=== PATIENT | female | born 1970 | race Caucasian/White ===

== ENCOUNTER 2025-02-03 11:16 | Emergency (ER) | payer OTHER, SELFPAY ==
[2025-02-03] VITALS (7 sets, daily range): BP systolic 124–141; BP diastolic 73–90; PULSE 50–81; RESP 14–23; TEMP 36.4–36.6; O2SAT 99–100
--- NOTE | ~2025-02-03 | CT_ITS ---
EXAMINATION: CTA BRAIN/CAROTID DATE: 02/03/2025 13:48 INDICATION: Headache, dizziness and arm numbness TECHNIQUE: Computed tomographic angiography (CTA) of the head and neck was performed with 100 mL Omni paque-350 intravenous contrast. Multiplanar reconstructions and maximum intensity projection 3D-recon structions of the carotid arteries and of the intracranial arteries were created by the technologist on a separate workstation. Precontrast CT of the head was also obtained. Automated exposure control and iterative reconstruction technique were employed.The dose-length product was 1581.96 mGy-cm. COMPARISON: None. FINDINGS: Carotid arteries: Visualized aortic arch and great vessels arising from the arch are normal in caliber with no dissecti on negligible amount of nonhemodynamically subsequent plaque at the aortic arch. Left vertebral arter y is mildly dominant with no evident plaque along the bilateral extrarenal vertebral arteries. There is no evident atherosclerotic plaque with 0% stenosis of the right and left carotid bulbs relative to normal distal artery lumen diameter (NASCET criteria). Mild cervical spondylosis. Visualized upper l ungs are clear. Cervical soft tissues are unremarkable. Head: No acute intracranial hemorrhage, acute infarction or abnormal extra axial fluid collection. Ventricl es are normal and symmetric. No mass/mass effect. No abnormally enhancing brain lesions on the postco ntrast imaging. Mild mucosal thickening in the left maxillary sinus. The orbits and mastoid air cells are normal. Intracranial arteries Left vertebral artery is dominant. There is no hemodynamically significant stenosis in the vertebral, basilar and internal carotid arteries. Both A1 and P1 segments are patent. There are tiny anterior c ommunicating and bilateral posterior communicating arteries. There are no aneurysms identified. Cere bral arterial arborization appears symmetric. IMPRESSION: 1. 0% stenosis of the right and left carotid bulbs relative to normal distal artery lumen diameter (N ASCET criteria). 2. Normal brain with no acute intracranial process or abnormally enhancing brain lesions. 3. Normal cerebral CT angiogram with no hematoma significant stenosis, thrombosis or aneurysm. Reviewed, dictated and finalized at location A. IMPRESSION: 1. 0% stenosis of the right and left carotid bulbs relative to normal distal ar [place] lumen diameter (NASCET criteria). 2. Normal brain with no acute intracranial process or abnormally enhancing brai n lesions. 3. Normal cerebral CT angiogram with no hematoma significant stenosis, thrombos is or aneurysm.
--- NOTE | 2025-02-03 11:47 | ECG_ITS ---
Test Date: 2025-02-03 11:55:39 Measurements Intervals [place] Rate: 53 P: 37 NC: 151 QRS: -11 QRSD: 102 T: 7 QT: 412 QTc: 389 Interpretive Statements SINUS BRADYCARDIA LOW QRS VOLTAGE IN PRECORDIAL LEADS [QRS DEFLECTION < 1.0 mV IN CHEST LEADS] No previous ECG available for comparison Electronically Signed On 02-03-2025 14:12:34 CDT by Filippo Rollins M.D.
[2025-02-03 12:02] LABS: Basophils Percent Auto 0.9 % (0.2-1.2); Eosinophils Absolute Auto 0.1 K/mm3 (0-0.3); Eosinophils Percent Auto 1.4 % (0-4.4); Hematocrit 39.6 % (37.0-47.0); Hemoglobin 12.9 g/dL (12.0-15.0); Immature Granulocyte Absolute 0.01 K/mm3 (0.00-0.031); Immature Granulocyte Percent A 0.2 % (0-0.5); Lymphocytes Absolute Auto 1.53 K/mm3 (0.9-3.2); Mean Corpuscular HGB Conc 32.6 g/dl (32-36); Mean Corpuscular Hemoglobin 31.2 pg (26-34); Mean Corpuscular Volume 95.7 fl (80-100); Mean Platelet Volume 10.9 fl (7.4-10.4); Monocytes Absolute Auto 0.4 K/mm3 (0.1-0.6); Monocytes Percent Auto 10.4 % (2.6-8.5); Neutrophils Absolute Auto 2.2 K/mm3 (1.3-6.7); Neutrophils Percent Auto 51.1 % (45.5-73.1); Platelet Count Result 178 k/mm3 (150-375); Red Blood Count 4.14 M/mm3 (4.2-5.4); Red Cell Distribution Width 13.2 % (11.5-14.5); White Blood Count 4.3 K/mm3 (4.5-10.0)
[2025-02-03 12:12] LABS: Alanine Aminotransferase 22 U/L (6-35); Albumin Level 4.3 g/dL (3.5-5.1); Alkaline Phosphatase 56 U/L (38-126); Anion Gap 7 mmol/L (4-12); Aspartate Amino Transferase 29 U/L (14-36); Bilirubin,Total 0.7 mg/dL (0.2-1.3); Blood Urea Nitrogen 16 mg/dL (7-17); Carbon Dioxide 25 mmol/L (22-30); Chloride 106 mmol/L (98-107); Estimated CRCL calculation 94 ml/min; Estimated Glomerular Filt Rate > 60; Glucose 95 mg/dL (65-110); Potassium 4.2 mmol/L (3.4-5.0); Sodium 138 mmol/L (137-145)
[2025-02-03] MEDS: MECLIZINE HCL 25 MG TABLET PO (13:00)
[2025-02-03] MEDS: KETOROLAC 30 MG/ML VIAL (*BKC) IV PUSH (13:00)
[2025-02-03] MEDS: SODIUM CHLORIDE 0.9% IV 1,000 ML 999 ML IV CONT (13:01)
[2025-02-03 13:33] LABS: Add Urine Microscopic? YES; Appearance Urine Clear (Clear); Bacteria Urine Rare /hpf; Bilirubin Urine Negative (Negative); Blood Urine Negative (Negative); Color Urine Yellow (Yellow); Glucose Urine UA Negative (Negative); Ketones Urine Negative (Negative); Leukocyte Esterase Ur Trace LEU/UL (Negative); Nitrate Urine Negative (Negative); Non Pathogenic Casts 0-2; Protein Urine Negative (Negative); RBC Urine 0-2 /hpf (0-2); Specific Grav Ur 1.011 (1.001-1.035); Squamous Epithelial Cell Urine None Seen /hpf (Few); WBC Urine 0-5 /hpf (0-3)
--- OUTSIDE RECORDS SUMMARY | 2025-02-03 14:18 | XMS_ITS | CONTINUITY OF CARE DOCUMENT ---
Author Name karen jones Address Unknown Organization [facility] Office Address [address] [place] [address] Phone [phone] Care Team Providers Care Door Machine Operator Name Role Phone Eben Devine MD Unavailable [phone] Eben Devine MD Unavailable [phone] INSURANCE PROVIDERS Payer name Policy type / Coverage type [place] red democrat ID [facility] [employer] [facility] [id number]
--- OUTSIDE RECORDS SUMMARY | 2025-02-03 14:18 | XMS_ITS | Clinical Summary ---
Author Organization [facility] Address [address] [place] [address] Care Team Providers Care Tire Builder Operator Name Role Phone Tom Pritchard MD Primary Care Provider [phone] Allergies Active Allergy Reactions Criticality Noted Date Comments Meperidine Headache,Other (See comments) High 2022 Hypertension Preservative Flatulence Low 07/15/2022 GI problems. Tramadol Anaphylaxis High 05/20/2020 Medications ALPRAZolam (XANAX) 0.5 mg tabletIndicatio ns:anxiety Take 1 tablet (0.5 mg total) by mouth 3 (three) times a day as needed for anxiety 05/23/2022 Active amLODIPine (NORVASC) 5 mg tabletIndicatio ns:hypertension Take 1 tablet (5 mg total) by mouth every morning 06/19/2022 Active atorvastatin (LIPITOR) 20 mg tabletIndicatio ns:hyperlipidem ia Take 1 tablet (20 mg total) by mouth every morning 05/23/2022 Active rizatriptan (MAXALT) 10 mg tabletIndicatio ns:Migraine Take 1 tablet (10 mg total) by mouth as needed for migraine 03/14/2013 Active calcium citrate-vitamin D3 200 mg-6.25 mcg (250 unit) tabletIndicatio ns:Hypocalcemia Prevention Take 2 tablets by mouth 3 (three) times a day Start post-surgery 180 tablet 11 03/12/2023 Active polyethylene glycol (MIRALAX) 17 gram/dose powderIndicatio ns:constipation Take 17 g by mouth 2 (two) times a day Start post-surgery 1020 g 1 03/12/2023 Active cyanocobalamin (Vitamin B-12) 500 mcg tabletIndicatio ns:Prevention of Vitamin B12 Deficiency Take 1 tablet (500 mcg total) by mouth daily Start post Surgery 30 tablet 11 05/07/2023 Active buPROPion XL (WELLBUTRIN XL) 150 mg 24 hr tablet Take 1 tablet every day by oral route in the morning for 30 days. 10/05/2024 Active busPIRone (BUSPAR) 5 mg tablet Take 1 tablet twice a day by oral route after meal(s) for 30 days. 10/05/2024 Active Active Problems Problem Noted Date Diagnosed Date Status post bariatric surgery 10/27/2024 Primary hypertension 08/23/2022 Hyperlipidemia 08/23/2022 Low back pain 08/23/2022 Resolved Problems Problem Noted Date Diagnosed Date Resolved Date Morbid (severe) obesity due to excess calories 03/27/2023 06/24/2023 Morbid obesity due to excess calories 12/09/2022 06/24/2023 Overview (12/09/2022): Added automatically from request for surgery [id number] BMI 45.0-49.9, adult 07/15/2022 023 Surgical History Surgery Date Site/Laterality Comments SECTION 08/14/1991 HYSTERECTOMY 2019 TUBAL LIGATION OTHER SURGICAL HISTORY Norplant OTHER SURGICAL HISTORY Surgery for Plantar Fasciitis Medical History Medical History Date Comments Anxiety 3yrs GERD (gastroesophageal reflux disease) 2020 Hypertension 3yrs Liver disease 2021 Low back pain 8 years Morbid obesity (HCC) 10 years Obesity 30 years Hyperlipidemia Family History Medical History Relation Name Comments Hypertension Brother Klaus Heart attack Father Rafy Hypertension Father Rafy Stroke Father Rafy Hypertension Maternal Grandfather Rafy Cancer Mother Renetta Kidney disease Mother Renetta Obesity Mother Renetta Heart attack Paternal Grandmother Rafy Sleep apnea Son Jefferson Relation Name Status Comments Brother Klaus Father Rafy Maternal Grandfather Rafy Mother Renetta Paternal Grandmother Rafy Son Jefferson Social History Tobacco Use Types Packs/Day Years Used Date Smoking Tobacco: Never Passive Smoke Exposure: Past Smokeless Tobacco: Never Tobacco Cessation:Counseling Given: Not Answered AUDIT-C Answer Date Recorded Q1: How often do you have a drink containing alc ohol? Monthly or less 10/27/2024 Q2: How many drinks containi ng alcohol do you have on a typical day when you are drinking? 1 or 2 10/27/2024 Q3: How often do you have si x or more drinks on one occasion? Never 10/27/2024 Personal Safety Answer Date Recorded Have you ever been in or are you currently in a harmful physical or emotional relationship or is someone making you feel afraid or unsafe? Denies 03/27/2023 Comments No Sex and Gender Information Value Date Recorded Sex Assigned at Not on file Legal Sex Female 9:26 AM IC [employer] Gender Identity Female 06/03/2022 9:00 AM CDT Sexual Orientation Not on file Obstetrics History Comments S/p Hysterectomy Last Filed Vital Signs Vital Sign Reading Time Taken Comments Blood Pressure 115/79 10/27/2024 9:51 AM [employer] Pulse 55 10/27/2024 9:51 AM [employer] Temperature 36.9 C (98.4 F) 03/29/2023 8:15 AM CDT Respiratory Rate 20 03/29/2023 8:15 AM CDT Oxygen Saturation 99% 10/27/2024 9:51 AM IC [employer] Inhaled Oxygen Concentration - - Weight 94.1 kg (207 lb 6.4 oz) 10/27/2024 9:51 A M [employer] Height 170.2 cm (5' 7 ) 10/27/2024 9:51 AM IC [employer] Body Mass Index 32.48 10/27/2024 9:51 AM IC [employer] Plan of Treatment Health Maintenance Due Date Last Done Comments Breast Cancer Screening-Mammogram 1972 Colon Cancer Screening-Colonoscopy 1972 Depression Screening 1972 Hepatitis C Screening 1972 DTaP/Tdap/Td Vaccine (1 - Tdap) 02/11/1983 Hepatitis B Screening 02/11/1990 Regular Well Visit/Exam 18-64 02/11/1990 Zoster Vaccine (1 of 2) 02/11/2022 Covid-19 Vaccine ( - 2023-2 5 season) 2024 12/29/2020, 12/01/2020 Influenza Vaccine (Season Ended) 2025 Pneumococcal vaccine <65 Aged Out No longer eligible based on patient's age to complete this topic Medical Devices Implanted Type Area Insole Reinforcer Device Identifier Shelf Expiration Date Model / Serial / Lot [employer] Biological Bariatric Peristrip Non Crosslinked Bovine Pericardium For Endo Triny Thin [id number] - Sn/A - [id number] Implanted:Qty: 4 on 03/27/2023 by Navin Storm MD at [facility] Other - see comments N/A: Abdomen [employer] 09/17/2023 [id number] ATHN / N/A / [id number] Description:Antonina-Strips Dry Staple Line Reinforcement [employer] Biological Bariatric Peristrip Non Crosslinked Bovine Pericardium For Endo Triny Thin [id number] - Sn/A - [id number] Implanted:Qty: 2 on 03/27/2023 by Navin Storm MD at [facility] Other - see comments N/A: Abdomen [employer] 09/17/2023 [id number] ATHN / N/A / [id number] Insurance [facility] Advance Directives For more information, please contact: [phone] * Full Code (Latest Code Status on File) Date Activated Date Inactivated Comments 03/27/2023 5:21 PM 03/29/2023 5:10 PM Care Teams Tire Builder Operator Relationship Specialty Start Date End Date Tom Pritchard MD [facility] [place] [address] PCP - General Family Medicine 07/23/22
--- OUTSIDE RECORDS SUMMARY | 2025-02-03 14:18 | XMS_ITS | Referral Summary ---
Author Organization [facility] Address [address] [place] [address] Care Team Providers Care Dba Manager Name Role Phone Tom Pritchard MD Primary Care Provider [phone] Allergies Active Allergy Reactions Criticality Noted Date [...] (12/09/2022): Added automatically from request for surgery [id number] BMI 45.0-49.9, adult 07/15/2022 023 Social History Tobacco Use Types Packs/Day Years [...] on file Legal Sex Female 9:26 AM [employer] Gender Identity Female 06/03/2022 9:00 AM CDT Sexual Orientation Not on file Last Filed Vital Signs Vital Sign Reading Time Taken Comments Blood Pressure 115/79 10/27/2024 9:51 AM [employer] Pulse 55 10/27/2024 9:51 AM [employer] Temperature 36.9 C (98.4 F) 03/29/2023 8:15 AM CDT Respiratory Rate 20 03/29/2023 8:15 AM CDT Oxygen Saturation 99% 10/27/2024 9:51 AM [employer] Inhaled Oxygen Concentration - - Weight 94.1 kg (207 lb 6.4 oz) 10/27/2024 9:51 A M [employer] Height 170.2 cm (5' 7 ) 10/27/2024 9:51 AM [employer] Body Mass Index 32.48 10/27/2024 9:51 AM [employer] Plan of Treatment Not on file Medical Devices Implanted Type Area Flexographic Press Plate Setter Device Identifier Shelf Expiration Date Model / Serial / Lot [employer] Biological Bariatric Peristrip Non Crosslinked Bovine Pericardium For Endo Triny Thin [id number] - Sn/A - [id number] Implanted:Qty: 4 on 03/27/2023 by Navin Storm MD at [facility] Other - see comments N/A: Abdomen [employer] 09/17/2023 [id number] ATHN / N/A / [id number] Description:Antonina-Strips Dry Staple Line Reinforcement [employer] Biological Bariatric Peristrip Non Crosslinked Bovine Pericardium For Endo Triny Thin [id number] - Sn/A - [id number] Implanted:Qty: 2 on 03/27/2023 by Navin Storm MD at [facility] Other - see comments N/A: Abdomen [employer] 09/17/2023 [id number] ATHN / N/A / [id number] Insurance [facility] Advance Directives For more information, please contact: [phone] * Full Code (Latest Code Status on File) Date Activated Date Inactivated Comments 03/27/2023 5:21 PM 03/29/2023 5:10 PM Care Teams Dba Manager Relationship Specialty Start Date End Date Tom Pritchard MD [address] [place] [address] [place] [address] PCP - General Family Medicine 07/23/22
--- OUTSIDE RECORDS SUMMARY | 2025-02-03 14:19 | XMS_ITS | Data Portability ---
Author Organization [facility] [employer], Main Office Address [address] [place] [address] Assessment No assessment recorded. Plan of Treatment Reminders Order Date Submit Date Provider Last Modified By Organization Details Last Modified Time Details Appointments Sick/Acut e 2024 11:00A ALEKSANDR Wilson Not available Not available Not available Follow Up 15 2024 09:00A M ALEKSANDR Cordoba Not available Not available Not available Lab drug screen, urine [email or web address] [place] [address] (Lab), [address] [place], [address], 12/31/2024 11:06:59 CBC w/ auto diff 2022 023 [facility] (Lab), [address] [place], [address], 09/04/2023 15:03:18 lipid panel, serum 2022 023 [facility] (Lab), [address] [place], [address], 09/04/2023 15:03:19 CMP, serum or plasma 2022 023 [facility] (Lab), [address] [place], [address], 09/04/2023 15:03:19 CK (creatine kinase), total, serum [email or web address] (Lab), [address] [place], [address], 09/24/2023 12:29:24 TSH, serum or plasma 2022 023 [email or web address] [facility] (Lab), [address] [place], [address], 09/24/2023 12:29:24 Referral psychiatr ist referral - Please eval and treat . Unable to tolerate venlafexa ine nor escitalop jamel. Thank you . numerous family stresses . lost her dad last year. 2024 025 [email or web address] Saumya Real [employer], [address], [address], 11/08/2024 09:10:38 Procedures None recorded. Surgeries None recorded. Imaging MAMMO, screening , digital, bilateral - *Please call pt to schedule* [address]23 [email or web address] [place] [address] ([facility]), [address] [place], [address], 08/18/2024 09:41:41 Medication Orders trazodone 50 mg tablet 2024 025 [facility] #80452, [address], [place], [id number], 12/24/2024 09:45:51 alprazola m 0.5 mg tablet 2024 025 [facility] #50926, [address], [place], [id number], 12/24/2024 09:44:18 buspirone 10 mg tablet 2024 025 [facility] #00940, [address], [place], [id number], 12/24/2024 09:44:14 bupropion HCl XL 150 mg 24 hr tablet, extended release 2024 025 [email or web address] [facility] #93169, [address], [place], [id number], 12/24/2024 09:22:01 alprazola m 0.5 mg tablet 2024 025 [email or web address] [facility] #36642, [address], [place], [id number], 10/05/2024 10:26:12 buspirone 5 mg tablet [address] [facility] #30193, [address], [place], [id number], 01/05/2025 14:57:29 escitalop jamel 10 mg tablet 2023 024 [email or web address] [facility] #45384, [address], [place], [id number], 10/05/2024 10:06:45 escitalop jamel 20 mg tablet 2023 024 [email or web address] [facility] #54140, [address], [place], [id number], 10/05/2024 10:06:54 alprazola m 0.5 mg tablet [address] [facility]11622, [address], [place], [id number], 08/04/2024 10:27:40 Patient TargetsNo targets recorded. Patient Instructions Encounter Date Encounter Id Patient Instructions Last Modified By Organization Details Last Modified Time 08/04/2024 [id number] counseled , good insight , no si/hi . wrote down book [employer] ..... get [employer] , write out thoughts , talk to someone , work through the grieving process [email or web address] Not available 08/22/2024 09:12:21 10/05/2024 [id number] no si/hi ; good insight; counseled why it is a good idea to get off alprazolam . she will checkout clonazepam and think about it [email or web address] Not available 10/08/2024 17:21:49 12/24/2024 [id number] counseled , good insight , no si/hi [email or web address] Not available 01/05/2025 14:57:48 Reason for Referral Psychiatrist Referral for An xiety Please eval and treat . Unable to tolerate venlafexaine nor escitalopram. Thank you . numerous family stresses . lost her dad last year. Referring Physician: Patrick Putnam, Family Medicine, Encounter Date: 10/05/2024 Results Created Date Observation Date Name Description Value Unit Range Abnormal Flag Note LastModifiedBy Organization Detail LastModifiedTime Result Notes None recorded. Problems Name Problem SNOMED Code Status Onset Date Resolution Date Notes Provider Name and Address Organization Details Recorded Time Cough with fever 202363242 Active Not Available [facility] 3 16:28:29 Lumbar disc prolapse with radiculopathy 663083017 Active Not Available [facility] 3 16:28:29 Low back pain 536421068 Active Not Available [facility] 3 16:28:29 Pain in pelvis 18099583 Active Not Available [facility] 3 16:28:29 Hypertensive disorder 98741898 Active Not Available [facility] 3 16:28:29 Streptococcal sore throat 43040015 Active Not Available [facility] 3 16:28:29 Pain of shoulder region 78630486 Active Not Available [facility] 3 16:28:29 Upper respiratory infection 52458390 Active Not Available [facility] 3 16:28:29 Disorder of bursa of shoulder region 46483879 Active Not Available [facility] 3 16:28:29 Strain of thoracic region 38250219 Active Not Available [facility] 3 16:28:29 Anxiety 61530600 Active 2022 Tom Pritchard MD [address], [place], [address] , [place] [facility] 3 11:49:45 Laparoscopic sleeve gastrectomy Active 2022 ALEKSANDR Cordoba [address], [address], [place], [address] , [place] [facility] 3 10:59:27 Hyperlipidemi a 42902836 Active 2022 ALEKSANDR Cordoba [address], [address], [place], [address] , [place] [facility] 3 11:00:06 Family horacio 584755135 Active 2023 ALEKSANDR Cordoba [address], [address], [place], [address] , [place] [facility] 4 10:14:10 Screening mammography Active 2023 ALEKSANDR Cordoba [address], [place], [address] , [place] [facility] 4 10:20:17 Adult health examination Active 2023 ALEKSANDR Cordoba [address], [address], [place], [address] , [place] [facility] 4 10:27:30 Insomnia 721861507 Active 2024 ALEKSANDR Cordoba [address], [place], [address] , [employer] [facility] 5 09:44:57 Problem Notes None recorded. Medical Equipment None Reported. Allergies Allergen ID Allergen Name Allergen Category Reaction Reaction Severity Criticality Documentation Date Start Date Code Code System Note Provider Name and Address Organization Details Recorded Time 56993 tramadol medicatio n Not available Not available Not available 11/13/2022 35053 RxNorm Not Available [facility] 3 16:29:28 71097 Demerol medicatio n Not available Not available Not available 11/13/2022 97193 1 RxNorm Not Available [facility] 3 16:29:28 Medications Name Sig Start Date Stop Date Status Note LastModified by Organization Details LastModified Time carisopro dol 350 mg tablet Take 1 tablet 3 times a day by oral route for 30 days. 06/30 completed Not Available Not Available Not Available cyclobenz aprine 10 mg tablet TAKE 1 TABLET BY MOUTH THREE TIMES DAILY NEEDED 08/04 completed Not Available Not Available Not Available amoxicill in 500 mg capsule TAKE 1 CAPSULE THREE TIMES DAILY UNTIL GONE 08/04 completed Not Available Not Available Not Available buspirone 5 mg tablet TAKE 1 TABLET BY MOUTH TWICE DAILY AFTER A MEAL 01/05 completed increase d to 10 mg Not Available Not Available Not Available venlafaxi ne ER 37.5 mg capsule,e xtended release 24 hr Take 1 capsule every day by oral route in the evening for 7 days. 10/05 completed Not Available Not Available Not Available venlafaxi ne ER 75 mg capsule,e xtended release 24 hr Take 1 capsule every day by oral route in the evening for 7 days. 10/05 completed Not Available Not Available Not Available atorvasta tin 20 mg tablet TAKE 1 TABLET BY MOUTH EVERY DAY active Not Available Not Available No t Available trazodone 50 mg tablet TAKE 1 TABLET BY MOUTH EVERY DAY AT BEDTIME active Not Available Not Available No t Available azithromy connie 250 mg tablet Take 2 TABLET EVERY DAY by oral route for 1 day. Than 1 tablet for 4 days active Not Available Not Available No t Available ibuprofen 800 mg tablet Take 1 tablet 3 times a day by oral route for 30 days. active Not Available Not Available No t Available alprazola m 1 mg tablet TAKE 1 TABLET BY MOUTH EVERY DAY active Not Available Not Available No t Available benzonata te 200 mg capsule Take 1 capsule 3 times a day by oral route as needed. 05/23 completed Not Available Not Available Not Available hydrocodo ne 5 mg-acetam inophen 325 mg tablet Take 1-2 TABLET EVERY4- 6 HOURS by oral route. active Not Available Not Available No t Available lisinopri l 20 mg tablet Take 1 tablet every day by oral route. 08/02 completed Not Available Not Available Not Available ondansetr on HCl 4 mg tablet 09/04 completed Not Available Not Available Not Available rizatript an 10 mg tablet Take by oral route. active Not Available Not Available No t Available venlafaxi ne ER 150 mg capsule,e xtended release 24 hr Take 1 capsule every day by oral route in the evening for 30 days. 10/05 completed Not Available Not Available Not Available phentermi ne 37.5 mg tablet TAKE ONE TABLET BY MOUTH DAILY 03/03 completed Not Available Not Available Not Available amlodipin e 5 mg tablet TAKE 1 TABLET BY MOUTH EVERY DAY IN THE MORNING active Not Available Not Available No t Available tramadol 50 mg tablet TAKE ONE TABLET BY MOUTH EVERY 6 HOURS active Not Available Not Available No t Available amoxicill in 500 mg tablet TAKE 1 TABLET BY MOUTH THREE TIMES DAILY TILL GONE 05/10 completed Not Available Not Available Not Available alprazola m 0.5 mg tablet TAKE 1 TABLET BY MOUTH TWICE DAILY NEEDED active Not Available Not Available No t Available amoxicill in 875 mg tablet Take 1 tablet every 12 hours by oral route. active Not Available Not Available No t Available meclizine 25 mg tablet Take 1 tablet 3 times a day by oral route as needed. 01/20 completed Not Available Not Available Not Available benzonata te 100 mg capsule TAKE 1 CAPSULE BY MOUTH 3 TIMES A DAY ASNEEDED 05/10 completed Not Available Not Available Not Available rizatript an 10 mg disintegr ating tablet Take by oral route. 08/04 completed Not Available Not Available Not Available dexametha sone 2 mg tablet TAKE 3 TABLETS BY MOUTH DAILY 05/10 completed Not Available Not Available Not Available pantopraz ole 40 mg tablet,de layed release Take 1 tablet every day by oral route. 09/04 completed Not Available Not Available Not Available oseltamiv ir 75 mg capsule 05/10 completed Not Available Not Available Not Available buspirone 10 mg tablet TAKE 1 TABLET TWICE A DAY BY MOUTH AFTER MEALS FOR 30 DAYS active Not Available Not Available No t Available lisinopri l 10 mg tablet Take 1 tablet every day by oral route. active Not Available Not Available No t Available hyoscyami ne 0.125 mg sublingua l tablet 08/04 completed Not Available Not Available Not Available ursodiol 300 mg capsule 09/04 completed Not Available Not Available Not Available docusate sodium 100 mg capsule TAKE 1 CAPSULE BY MOUTH TWICE DAILY active Not Available Not Available No t Available omeprazol e 20 mg capsule,d elayed release TAKE 1 CAPSULE BY MOUTH DAILY active Not Available Not Available No t Available diclofena c sodium 75 mg tablet,de layed release Take 1 tablet twice a day by oral route. active Not Available Not Available No t Available hydrochlo rothiazid e 25 mg tablet Take 1 tablet every day by oral route. 05/10 completed Not Available Not Available Not Available Cheratuss in AC 10 mg-100 mg/5 mL oral liquid take 1-2 tsp every 4-6hrs prn cough active Not Available Not Available No t Available polyethyl ramin glycol 3350 17 gram/dose oral powder TAKE 17G BY MOUTH TWICE DAILY STARTING POST-WILMAR ELIZABETH active Not Available Not Available No t Available scopolami ne 1 mg over 3 days transderm al patch 09/04 completed Not Available Not Available Not Available methylpre dnisolone 4 mg tablets in a dose pack 06/30 completed Not Available Not Available Not Available ondansetr on 4 mg disintegr ating tablet 06/15 completed Not Available Not Available Not Available amoxicill in 875 mg-potass ium clavulana te 125 mg tablet Take 1 tablet every 12 hours by oral route. 10/29 completed Not Available Not Available Not Available oxycodone 5 mg tablet 08/04 completed Not Available Not Available Not Available valsartan 160 mg tablet 11/06 completed Not Available Not Available Not Available Vitamin B12 500 mcg tablet Take by oral route. active Not Available Not Available No t Available olmesarta n 40 mg tablet TAKE ONE TABLET BY MOUTH DAILY 08/02 completed Not Available Not Available Not Available escitalop jamel 10 mg tablet Take 1 tablet every day by oral route in the morning, for 7. 10/05 completed Not Available Not Available Not Available escitalop jamel 20 mg tablet Take 1 tablet every day by oral route in the morning for 30 days. 10/05 completed Not Available Not Available Not Available Therese-BE 0.35 mg tablet Take 1 tablet every day by oral route. 05/10 completed Not Available Not Available Not Available bupropion HCl XL 150 mg 24 hr tablet, extended release TAKE 1 TABLET BY MOUTH EVERY DAY IN THE MORNING active Not Available Not Available No t Available topiramat e 50 mg tablet TAKE 1 TABLET TWICE A DAY active Not Available Not Available No t Available nitrofura ntoin monohydra te/macroc rystals 100 mg capsule TK 1 C PO Q 12 H FOR 7 DAYS 09/19 completed Not Available Not Available Not Available Voltaren 2013 active Not Available Not Available Not Avai lable Colace active Not Available Not Availa ble Not Available calcium citrate 200mg active Not Available Not Available Not Available Vitamin D3 active Not Available Not Available Not Available multivita min active Not Available Not Available Not Available valsartan 320 mg-hydroc hlorothia zide 25 mg tablet TAKE 1 TABLET BY MOUTH EVERY DAY 08/04 completed Not Available Not Available Not Available aprepitan t 40 mg capsule 09/04 completed Not Available Not Available Not Available hydrochlo rothiazid e 12.5 mg tablet Take 1 tablet every day by oral route. 06/01 completed Not Available Not Available Not Available FeroSul 325 mg (65 mg iron) tablet TAKE 1 TABLET BY MOUTH DAILY WITH BREAKFAS T 08/04 completed Not Available Not Available Not Available Nucynta ER 100 mg tablet,ex tended release Take 1 tablet every 12 hours by oral route. 05/10 completed Not Available Not Available Not Available Trintelli x 20 mg tablet Take 1 tablet every day by oral route. 05/10 completed Not Available Not Available Not Available Vitals Date Recorded Body height Body mass index (BMI) Body weight Body temperature Respiratory rate Heart rate Oxygen saturation Oxygen saturation in Arterial blood by Pulse oximetry Systolic blood pressure Diastolic blood pressure Provider Name and Address Organization Details Last Updated DateTime 3 170.18 cm 35.9 kg/m2 023425. 65 g 97.6 [degF] 16 /min 56 /min 98 % 98 % 130 mm[Hg] 86 mm[Hg] Amanda Queen RN [place] [facility] [facility] 3 10:49:27 Date Recorded Body height Body mass index (BMI) Body weight Body temperature Heart rate Oxygen saturation Oxygen saturation in Arterial blood by Pulse oximetry Systolic blood pressure Diastolic blood pressure Provider Name and Address Organization Details Last Updated DateTime 4 170.18 cm 32.1 kg/m2 95805.4 4 g 98 [degF] 73 /min 100 % 100 % 130 mm[Hg] 80 mm[Hg] Dora Balbuena RN [facility] [employer] [facility] 4 09:57:24 Date Recorded Body height Body mass index (BMI) Body weight Body temperature Oxygen saturation Oxygen saturation in Arterial blood by Pulse oximetry Heart rate Systolic blood pressure Diastolic blood pressure Provider Name and Address Organization Details Last Updated DateTime 5 170.18 cm 32.5 kg/m2 09927.7 g 98.1 [degF] 98 % 98 % 59 /min 118 mm[Hg] 78 mm[Hg] Rafiq Melton RN [facility] [employer] [facility] 5 10:09:37 Date Recorded Body height Body mass index (BMI) Body weight Body temperature Heart rate Oxygen saturation Oxygen saturation in Arterial blood by Pulse oximetry Systolic blood pressure Diastolic blood pressure Provider Name and Address Organization Details Last Updated DateTime 5 170.18 cm 32.6 kg/m2 80973.2 1 g 97.3 [degF] 79 /min 99 % 99 % 138 mm[Hg] 86 mm[Hg] Reba Ray Malcolm [facility] [employer] [facility] 5 09:28:14 Date Recorded Body height Body mass index (BMI) Body weight Body temperature Oxygen saturation Oxygen saturation in Arterial blood by Pulse oximetry Heart rate Systolic blood pressure Diastolic blood pressure Provider Name and Address Organization Details Last Updated DateTime 5 170.18 cm 32.6 kg/m2 86307.2 1 g 99.1 [degF] 99 % 99 % 72 /min 160 mm[Hg] 78 mm[Hg] Reba Ray Malcolm [facility] [employer] [facility] 5 12:01:44 Social History None recorded. Functional Status None recorded. Mental Status None recorded. Family History Nothing Reported Notes:grandfather liver canc er Medical History No medical history recorded. Gynecological HistoryNo gynecological history recorded. Obstetrics History GPAL:G 0 P 0 0 0 0 Past Encounters Encounter ID Performer Location Encounter Start Date Encounter Closed Date Diagnosis/Indication Diagnosis SNOMED-CT Code Diagnosis ICD10 Code Diagnosis Note [id number] Tom Pritchard MD [facility] [place] [address] [place] [address] 05/10/2022 00:00:00 05/10/2022 18:54:13 [id number] Tom Pritchard MD [facility] [place] [address] [place] [address] 05/22/2022 00:00:00 05/23/2022 05:54:28 [id number] Tom Pritchard MD [facility] [place] [address] [facility] [place] [address] 06/19/2022 00:00:00 06/19/2022 13:16:21 [id number] Tom Pritchard MD [facility] [place] [address] [facility] [place] [address] 08/21/2022 00:00:00 08/21/2022 10:31:14 [id number] Tom Pritchard MD [facility] [place] [address] [place] [address] 09/19/2022 00:00:00 09/19/2022 11:18:23 [id number] Tom Pritchard MD [facility] [place] [address] [facility] [place] [address] 12/11/2022 09:32:45 12/11/2022 10:42:16 Pre-surgery evaluation 312355640 Z01.818 ECG is normal [id number] Tom Pritchard MD [facility] [place] [address] [facility] [place] [address] 09/04/2023 10:33:01 09/04/2023 11:09:10 Hypertensive disorder 44004566 I10 Hyperlipidemia 95595179 E78.5 [id number] [facility] [address] [place] [address] 08/04/2024 09:41:49 08/04/2024 10:23:40 Family grieving 678226652 Z63.8 Anxiety 02496446 F41.9 Screening mammography 24 303054 Z12.31 Adult heal th examination 402918705 Z00.00 Hyperlipidemia 28075915 E78.5 [id number] Hernan Kumar MD [address] [address] 10/05/2024 09:59:47 10/05/2024 10:38:26 Family grieving 272758659 Z63.8 Anxiety 20453307 F41.9 [id number] Hernan Kumar MD [address] [address] 12/24/2024 09:09:01 12/24/2024 10:35:41 Anxiety 15585186 F41.9 Insomnia 894655336 G47.0 0 Long-term current use of benzodiazepine 5646473272 8834543 Z79.899 Lumbar dis c prolapse with radiculopathy 543011812 M51.16 Health Concerns Section Related Observation LastModified by Organization Detai ls LastModified Time None Recorded Concern Status LastModified by Organization Details LastModified Time None Recorded Advance Directives Directive None Recorded Payers Encounter Date Sequence Insurance Name Policy Number Policy Burrell Covered Member ID Burrell Member ID Guarantor Name 09/04/2023 1 [employer] () Farzaneh Brianna [id number] Farzaneh [place] 08/04/2024 1 [employer] () Farzaneh Brianna [id number] Farzaneh Brianna 10/05/2024 1 [employer] () Farzaneh [place] [id number] Farzaneh [place] 10/05/2024 1 [employer] [place] () Farzaneh Brianna [id number] Farzaneh Brianna 12/24/2024 1 [facility] [place] Farzaneh [place] [id number] Farzaneh [employer] Notes Date Note Type Note Provider Name and Address Organization Details Recorded Time 09/04/2023 text/html 130/73 at home. has lost 107 pounds .. no valsartan for awhile , just amlodipine 5 mg ALEKSANDR Cordoba [address], [place], [address], [employer] [facility] [employer] 09/14/2023 15:13:17 08/04/2024 text/html lost Dad 3 month s ago . he had rolled a semi awhile back , recovered from that , but he was working [place] and reached for something , a big heavy machine fell on him and crushed him . Shes' cussing , just not herself . was on prozac once , did not like that. ALEKSANDR Cordoba [address], [place], [address], [employer] 08/22/2024 09:13:05 10/05/2024 text/html history of gastr ic sleeve. suicidal thoughts on both antidepressants . alprazolam takes the edge off. ALEKSANDR Cordoba [address], [place], [address], [employer] 10/08/2024 17:22:27 12/24/2024 text/html agitation ALEKSANDR Cordoba [address] [employer], [place], [address], [employer] [facility] [employer] 01/05/2025 14:58:42 OBGyn Episode No OBEpisode recorded.
--- NOTE | 2025-02-03 15:19 | ED_ITS ---
HPI - General Adult General Chief complaint: Headache Stated complaint: left side numbness since last night Time Seen by Provider: 02/03/25 12:05 History of Present Illness HPI narrative: Patient is a 54-year-old female who presents ER with multiple issues. First issue is dizziness. Sudden onset last night while sleeping. Associated with feeling flushed. Spinning in nature. Mild throbbing headache. Patient's other issue is she has been having tingling pain left arm mainly at night over last month. Tingling goes into fingers of her hands. She has been working on her but repetitively. Related Data Allergies Allergy/AdvReac Type Severity Reaction Status Date / Time meperidine (From Demerol) Allergy Intermediate Headache Verified 02/03/25 11:18 Review of Systems 2 Review of Systems: All systems reviewed & are unremarkable except as noted in HPI and below Constitutional: Constitutional: Reports no additional constitutional complaints ENT: Reports system reviewed and no additional complaints, except as documented Cardiovascular: Cardiovascular: Reports no additional cardiovascular complaints Respiratory: Respiratory: Reports no additional respiratory complaints Musculoskeletal: Musculoskeletal: Reports no additional musculoskeletal complaints Neurologic: Reports system reviewed and no additional complaints, except as documented PMFSH Past Medical History Medical History (Updated 02/03/25 @ 22:32 by Phillip Recinos MD) Healthy female adult Exam 2 Narrative: GENERAL: Well-appearing, well-nourished, and in no acute distress. HEAD: Normocephalic, atraumatic. EYES: PERRL and EOMI. Left gaze nystagmus. ENT: Mucous membranes moist. Fluid behind the ears bilaterally appear CHEST: Clear to auscultation. No respiratory distress. HEART: Regular rate and rhythm. Normal peripheral pulses. ABDOMEN: Soft, nontender, nondistended. EXTREMITIES: Normal range of motion. No edema. Positive carpal tunnel compression test left wrist. SKIN: Warm, dry, no rash. NEURO: NIH stroke scale 0. Alert and oriented x3. PSYCH: Normal mood and affect. Course Course Emergency Course: Patient feels much better after meclizine, fluids, Toradol. Discussed diagnosis and treatment plan. Patient verbalized understanding. Discharge home. Vital Signs Vital signs: Vital Signs Temperature 97.6 F 02/03/25 11:21 Pulse Rate 61 02/03/25 11:21 Respiratory Rate 16 02/03/25 11:21 Blood Pressure 141/77 H 02/03/25 11:21 Pulse Oximetry 100 02/03/25 11:21 Oxygen Delivery Room Air 02/03/25 11:21 Temperature 97.9 F 02/03/25 11:42 Pulse Rate 50 L 02/03/25 13:30 Respiratory Rate 14 02/03/25 13:30 Blood Pressure 128/73 02/03/25 13:30 Pulse Oximetry 100 02/03/25 13:30 Oxygen Delivery Room Air 02/03/25 11:21 Medical Decision Making Vital Signs Vital Signs: Vital Signs Temperature 97.6 F 02/03/25 11:21 Pulse Rate 61 02/03/25 11:21 Respiratory Rate 16 02/03/25 11:21 Blood Pressure 141/77 H 02/03/25 11:21 Pulse Oximetry 100 02/03/25 11:21 Oxygen Delivery Room Air 02/03/25 11:21 Temperature 97.9 F 02/03/25 11:42 Pulse Rate 50 L 02/03/25 13:30 Respiratory Rate 14 02/03/25 13:30 Blood Pressure 128/73 02/03/25 13:30 Pulse Oximetry 100 02/03/25 13:30 Oxygen Delivery Room Air 02/03/25 11:21 Lab Data 02/03/25 11:57 02/03/25 11:57 Labs: Lab Results 02/03/25 02/03/25 Range/Units 11:57 12:48 WBC 4.3 L (4.5-10.0) K/mm3 RBC 4.14 L (4.2-5.4) M/mm3 Hgb 12.9 (12.0-15.0) g/dL Hct 39.6 (37.0-47.0) % MCV 95.7 (80-100) fl MCH 31.2 (26-34) pg MCHC 32.6 (32-36) g/dl RDW 13.2 (11.5-14.5) % Plt Count 178 (150-375) k/mm3 MPV 10.9 H (7.4-10.4) fl Immature Gran % (Auto) 0.2 (0-0.5) % Neut % (Auto) 51.1 (45.5-73.1) % Lymph % (Auto) 36.0 (18.3-44.2) % Dukes % (Auto) 10.4 H (2.6-8.5) % Eos % (Auto) 1.4 (0-4.4) % Baso % (Auto) 0.9 (0.2-1.2) % Lymph # (Auto) 1.53 (0.9-3.2) K/mm3 Dukes # (Auto) 0.4 (0.1-0.6) K/mm3 Eos # (Auto) 0.1 (0-0.3) K/mm3 Baso # (Auto) 0.0 (0.0-0.1) K/mm3 Abs Immat Gran (auto) 0.01 (0.00-0.031) K/mm3 Absolute Neuts (auto) 2.2 (1.3-6.7) K/mm3 Absolute Nucleated RBC 0.000 (0.0-0.012) K/mm3 Nucleated RBC % 0.0 (0.0-0.2) % Sodium 138 (137-145) mmol/L Potassium 4.2 (3.4-5.0) mmol/L Chloride 106 (98-107) mmol/L Carbon Dioxide 25 (22-30) mmol/L Anion Gap 7 (4-12) mmol/L BUN 16 (7-17) mg/dL Creatinine 0.71 (0.7-1.0) mg/dL Estim Creat Clear Calc 94 ml/min Estimated GFR > 60 (59 - ) Glucose 95 (65-110) mg/dL Calcium 9.0 (8.4-10.2) mg/dL Total Bilirubin 0.7 (0.2-1.3) mg/dL AST 29 (14-36) U/L ALT 22 (6-35) U/L Alkaline Phosphatase 56 (38-126) U/L Total Protein 7.0 (6.3-8.2) g/dL Albumin 4.3 (3.5-5.1) g/dL Urine Color Yellow (Yellow) Urine Appearance Clear (Clear) Urine pH 7.0 (5.0-9.0) Ur Specific [place] 1.011 (1.001-1.035) Urine Protein Negative (Negative) mg/dL Urine Glucose (UA) Negative (Negative) mg/dL Urine Ketones Negative (Negative) mg/dL Ur Blood (Man) Negative (Negative) Urine Nitrate Negative (Negative) Urine Bilirubin Negative (Negative) Urine Urobilinogen 1.0 (<2.0) mg/dL Leukocyte Esterase Rfl Trace H (Negative) TEOFILO/UL Urine RBC 0-2 (0-2) /hpf Urine WBC 0-5 (0-3) /hpf Ur Squamous Epith Cells None seen (Few) /hpf Urine Bacteria Rare /hpf Urine Casts 0-2 Imaging Data Radiologist's impression: ITS Impressions Head/Neck CTA 02/03/25 13:55 IMPRESSION: 1. 0% stenosis of the right and left carotid bulbs relative to normal distal artery lumen diameter (NASCET criteria). 2. Normal brain with no acute intracranial process or abnormally enhancing brain lesions. 3. Normal cerebral CT angiogram with no hematoma significant stenosis, thrombosis or aneurysm. Discharge Plan Discharge Clinical Impression: Vertigo, Carpal tunnel syndrome Patient Disposition: Home Condition: Stable Instructions: Carpal Tunnel Syndrome (DC), Vertigo (ED) Additional Instructions: Follow-up with primary care doctor for further treatment evaluation. You need to obtain a cock-up wrist splint for your carpal tunnel syndrome on left side and take anti-inflammatories that are being prescribed. For your vertigo meclizine will help your dizziness and you should take it twice a day for the next 2 days and then as needed after that. Patient Language: Ch[place] Prescriptions: New naproxen 375 mg tablet 375 mg PO BID Qty: 14 0RF meclizine 25 mg tablet 25 mg PO BID PRN (Reason: dizziness) Qty: 14 0RF Follow-up/Referrals: UNKNOWN,DOCTOR [Primary Care Provider] - 1 Week
== END 2025-02-03 15:30 | disposition home or self-care (01) ==
PROVIDERS: Emergency Medicine; Emergency Provider Emergency Medicine
DX: R42 Dizziness and giddiness (principal); G56.02 Carpal tunnel syndrome, left upper limb; R00.1 Bradycardia, unspecified
CPT/HCPCS: 36415; 70496; 70498; 80053; 81001; 85025; 93005; 96361; 96374; 99284; A9270; J1885; J7030; Q9967